=== PATIENT | male | born 1975 | race Two or more races ===

== ENCOUNTER → 2016-08-09 | Outpatient (REF) | payer OTHER | LOC: M SFHCLERA 17:46 | PROVIDERS: ATTEND Nurse Practitioner Family | DX: R59.0 Localized enlarged lymph nodes (principal) ==

== ENCOUNTER → 2017-01-26 | Outpatient (CLI) | payer OTHER ==
[~2017-01-26] MED LIST: METHACHOLINE KIT (J7674) INH ONE
--- NOTE | 2017-01-26 10:18 | PFTRPT ---
Tech: Alicia CROCKER RRT Age: 41 Sex: Male Race: Height: 74.00 Inches Weight: 248.00 Lbs BSA: 2.38 Diagnosis: R06.00 METHACHOLINE CHALLENGE REPORT: ORDERING PROVIDER: Weston Ramos MD DATE OF SERVICE: 01/26/17 INTERPRETATION: The study was of excellent technical quality. Under protocol, methacholine was administered. At a dose of 2.5 mg (13.875 CDUs), a 35% decline in the FEV1 was noted. The PC20 of 0.58 is significant. Flow rates returned to baseline post bronchodilator administration. IMPRESSION: Positive methacholine challenge study. MTDD
== END ==
LOC: M CARPUL 09:35
PROVIDERS: ATTEND Internal Medicine Pulmonary Disease
DX: R06.00 Dyspnea, unspecified (principal)